=== PATIENT | female | born 1960 | race Caucasian/White ===

== ENCOUNTER 2018-12-04 06:39 | Inpatient (IN) | payer BC ==
[~2018-12-04 06:39] MED LIST: Acetaminophen 325 MG Tab PO SCH; Lidocaine 1%/Sod Bicarbonate in NS 8.4% 1 ML Syringe IDERM PRN; Pregabalin 25 MG Cap PO SCH; Sodium Chloride 0.9% 10 ML Syringe FLUSH PRN; oxyCODONE ER 10 MG TAB.ER PO SCH
--- NOTE | 2018-12-04 07:24 | PCM.PREANE ---
Preanesthetic Assessment - Anesthesia/Transfusion/Family Hx Anesthesia History: Prior Anesthesia Reaction Type of Anesthesia Reaction: Excessive Nausea/Vomiting, Other (see below) ( seizure with marcaine injection during foot surgery 2011) Family History of Anesthesia Reaction: No Transfusion History: No Prior Transfusion(s) - Review of Systems General: No Symptoms Pulmonary: No Symptoms Cardiovascular: No Symptoms, Other (HTN, on meds) Gastrointestinal: Other (GERD controlled with meds) Neurological: Other (s/p lumbar surgery, no residual effects) - Physical Assessment NPO Status Date: 12/03/18 NPO Status Time: 21:00 ASA Class: 2 Mental Status: Alert & Oriented x3 Airway Class: Mallampati = 2 Dentition: Reports: Normal Dentition Thyro-Mental Finger Breadths: 3 Mouth Opening Finger Breadths: 3 ROM/Head Extension: Full Lungs: Clear to Auscultation, Normal Respiratory Effort Cardiovascular: Regular Rate, Regular Rhythm - Lab Values: Laboratory Last Values MRSA (PCR) Negative 11/15/18 12:17 - Allergies Allergies/Adverse Reactions: Allergies Allergy/AdvReac Type Severity Reaction Status Date / Time hydrochlorothiazide Allergy SKIN Verified 12/03/18 17:09 SENSITIVITY iodine Allergy Sneezing Verified 12/03/18 17:09 tetracaine Allergy Swelling Verified 12/03/18 17:09 bupivacaine [From Marcaine] AdvReac Seizure Verified 12/04/18 07:12 cephalexin [From Keflex] AdvReac Nausea and Verified 12/04/18 07:12 Vomiting - Blood Blood Available: No Product(s) Available: None - Anesthesia Plan Pre-Op Medication Ordered: None - Acknowledgements Anesthesia Type Planned: General Anesthesia Pt an Appropriate Candidate for the Planned Anesthesia: Yes Alternatives and Risks of Anesthesia Discussed w Pt/Guardian: Yes Pt/Guardian Understands and Agrees with Anesthesia Plan: Yes PreAnesthesia Questionnaire HEENT History: Reports: None Cardiovascular History: Reports: Hypertension Respiratory History: Reports: None Gastrointestinal History: Reports: Hepatitis, Other (See Below) Other Gastrointestinal History: hepatitis A (in highschool) Genitourinary History: Reports: None [employer] History: Reports: , Other (See Below) Other OB/BYN History: bicornate uterus Musculoskeletal History: Reports: Osteoarthritis Other Musculoskeletal History: joint pain, back pain, knee pain Neurological History: Reports: Other (See Below) Other Neuro History: trigeminal neuralgia Psychiatric History: Reports: None Endocrine/Metabolic History: Reports: None Hematologic History: Reports: None Immunologic History: Reports: None Oncologic (Cancer) History: Reports: None Dermatologic History: Reports: Other (See Below) Other Dermatologic History: actinic keratosis - Past Surgical History HEENT Surgical History: Reports: Oral Surgery Cardiovascular Surgical History: Reports: None Respiratory Surgical History: Reports: None GI Surgical History: Reports: None Female Surgical History: Reports: Section Male Surgical History: Reports: None Endocrine Surgical History: Reports: None Neurological Surgical History: Reports: Other (See Below) Other Neurological Surgeries/Procedures: L4L5 fusion, microvascular decompression for trigeminal neuralgia- corey piece left in. Musculoskeletal Surgical History: Reports: Arthroscopic Knee Oncologic Surgical History: Reports: None Dermatological Surgical History: Reports: None - SUBSTANCE USE Smoking Status *Q: Never Smoker Second Hand Smoke Exposure: No Recreational Drug Use History: No - HOME MEDS Home Medications: Home Meds Ca Carbonate/Vitamin D3/Vit K [Calcium + D Soft Chewable Tab] 1 tab PO DAILY 08/16 [History] Cholecalciferol (Vitamin D3) [Vitamin D3] 5,000 unit PO DAILY 12/03/18 [History] Ibuprofen 200 - 600 mg PO Q6H PRN 12/03/18 [History] Losartan Potassium 50 mg PO DAILY 12/03/18 [History] Multivitamin [Daily Multiple Vitamin] 1 tab PO DAILY 12/03/18 [History] Ranitidine HCl [Zantac 75] 75 mg PO DAILY 12/03/18 [History] - CURRENT (IN HOUSE) MEDS Current Meds: Current Medications Acetaminophen (Tylenol) 975 mg PO ONETIME [facility] Stop: 12/04/18 12:00 Aspirin (Ecotrin) 325 mg PO BID [facility] Bisacodyl (Dulcolax) 5 mg PO DAILY PRN PRN Reason: Constipation Morphine Sulfate 8 mg/Epinephrine HCl 0.3 mg/Cefuroxime Sodium 750 mg/Ketorolac Tromethamine 30 mg/Sodium Chloride 27.9 ml 0 mg .XX ONETIME ONE Stop: 12/04/18 09:01 Cyclobenzaprine HCl (Flexeril) 10 mg PO TID PRN PRN Reason: Spasms Docusate Sodium (Colace) 100 mg PO BID [facility] Famotidine (Pepcid) 20 mg PO Q12H [facility] Lactated Ringer's (Ringers, Lactated) 1,000 mls @ 125 mls/hr IV ASDIRECTED [facility] Stop: 12/04/18 23:00 Cefazolin Sodium/Dextrose 2 gm (/ Premix) 50 mls @ 100 mls/hr IV Q8H [facility] Stop: 12/04/18 23:44 Ketorolac Tromethamine (Toradol) 15 mg IVPUSH Q6H PRN PRN Reason: Pain Lidocaine/Sodium Bicarbonate (Buffered Lidocaine 1% In Ns 8.4%) 0.25 ml IDERM ONETIME PRN PRN Reason: Prior to IV Start Stop: 12/04/18 18:00 Magnesium Hydroxide (Milk Of Magnesia) 30 ml PO BID PRN PRN Reason: Constipation Morphine Sulfate (Morphine) 2 mg IVPUSH Q2H PRN PRN Reason: Breakthrough Pain Naloxone HCl (Narcan) 0.1 mg IVPUSH Q5M PRN PRN Reason: Oversedation Ondansetron HCl (Zofran) 4 mg IVPUSH Q6H PRN PRN Reason: Nausea/Vomiting Oxycodone HCl (Oxycontin) 10 mg PO ONETIME [facility] Oxycodone/Acetaminophen (Percocet 325-5 Mg) 1 - 2 tab PO Q4H PRN PRN Reason: Pain Pregabalin (Lyrica) 50 mg PO ONETIME [facility] Stop: 12/04/18 12:00 Senna (Senna) 8.6 mg PO BID PRN PRN Reason: Constipation Sodium Chloride (Saline Flush) 10 ml FLUSH ASDIRECTED PRN PRN Reason: Keep Vein Open Stop: 12/04/18 18:00 Discontinued Medications Cefazolin Sodium (Ancef) Confirm Administered Dose 2 gm .ROUTE .STK-MED ONE Stop: 12/04/18 07:13 Tranexamic Acid (Cyklokapron) Confirm Administered Dose 1,000 mg .ROUTE .STK- MED ONE Stop: 12/04/18 07:13 Vancomycin HCl (Vancomycin) Confirm Administered Dose 1 gm .ROUTE .STK-MED ONE Stop: 12/04/18 07:13
[2018-12-04] MEDS: Lactated Ringers 1,000 ML IV SCH ×2 (07:25→10:51)
[2018-12-04] MEDS ORDERED: Scopolamine 1.5 MG Transdermal Patch TOP SCH (07:31)
[2018-12-04] MEDS ORDERED: EPINEPHrine 1 MG/1 ML Amp ONE (07:33)
[2018-12-04] MEDS ORDERED: Ropivacaine 0.5% 5 MG/ML 30 ML SDV ONE (07:33)
[2018-12-04] MEDS ORDERED: HYDROmorphone 0.5 MG/0.5 ML Syringe ONE ×3 (07:37→09:07)
[2018-12-04] MEDS ORDERED: Lactated Ringers 1,000 ML ONE (07:37)
[2018-12-04] MEDS ORDERED: Rocuronium 50 MG/5 ML Vial ONE (07:37)
[2018-12-04] MEDS ORDERED: Ondansetron 4 MG/2 ML SDV ONE (07:37)
[2018-12-04] MEDS ORDERED: Dexamethasone 4 MG/ML 5 ML MDV ONE (07:37)
[2018-12-04] MEDS ORDERED: Propofol 200 MG/20 ML SDV ONE ×2 (07:37→09:04)
[2018-12-04] MEDS ORDERED: fentaNYL 250 MCG/5 ML SDV ONE (07:38)
[2018-12-04] MEDS ORDERED: Ketamine 500 mg/10 ML MDV ONE (07:38)
[2018-12-04] MEDS ORDERED: Midazolam 1 MG/ML 2 ML SDV ONE (07:38)
[2018-12-04] MEDS ORDERED: ceFAZolin 1 GM Vial ONE (07:55)
[2018-12-04] MEDS ORDERED: Lidocaine 1% 4 ML ONE (08:18)
[2018-12-04] MEDS ORDERED: ePHEDrine/Normal Saline 25 MG/5 ML Syringe ONE (08:20)
[2018-12-04] MEDS: ceFAZolin 1 GM Vial ONE ×2 (09:03→09:15)
[2018-12-04] MEDS: Vancomycin 1 GM SDV ONE ×2 (09:04→09:19)
[2018-12-04] MEDS: Morphine 8 MG, EPINEPHrine 0.3 MG, Cefuroxime 750 MG, Ketorolac 30 MG, Sodium Chloride ... ONE ×10 (09:04→09:18)
[2018-12-04] MEDS ORDERED: Neostigmine Methylsulfate 1 MG/ML 5 ML Syringe ONE (09:25)
--- NOTE | 2018-12-04 10:27 | PCM.POSTAN ---
POST ANESTHESIA ASSESSMENT - MENTAL STATUS Mental Status: Alert, Oriented - VITAL SIGNS Vital Signs: Last Vital Signs Temp 36.2 C 12/04/18 06:50 Pulse 66 12/04/18 06:50 Resp 16 12/04/18 06:50 BP 126/75 12/04/18 06:50 Pulse Ox 96 12/04/18 06:50 - RESPIRATORY Respiratory Status: Respiratory Rate WNL, Airway Patent, O2 Saturation Stable, Supplemental Oxygen - CARDIOVASCULAR CV Status: Pulse Rate WNL, Blood Pressure Stable - GASTROINTESTINAL GI Status: No Symptoms - PAIN Pain Score: 9 - POST OP HYDRATION Hydration Status: Adequate & Stable
[2018-12-04] MEDS ORDERED: HYDROmorphone 0.5 MG/0.5 ML Syringe IVPUSH PRN (10:28)
[2018-12-04] MEDS ORDERED: fentaNYL 100 MCG/2 ML SDV IVPUSH PRN (10:28)
[2018-12-04] MEDS ORDERED: Ondansetron 4 MG/2 ML SDV IVPUSH PRN (10:28)
--- NOTE | 2018-12-04 10:44 | PCM.SN ---
- Free Text/Narrative Note: Left selective femoral nerve block at the adductor canal for post-procedure pain control under US guidance requested by Dr. Ly. Date:12/04/18 Time Out: 1027 Start: 1030 End: 1035 Chart reviewed. Consent signed. Questions answered. Appropriate monitors applied. Time out performed. Left mid-shaft femur identified with ultrasound, scanning medially of femur, the femoral artery in the adductor canal visualized , and the femoral nerve located laterally to the artery. The skin was prepped lateral to the ultrasound probe with chlorahexadine times two. The 22ga 4 insulated block needle was inserted under direct ultrasound guidance into the adductor canal. 25mL of 0.5% ropivacaine with 1:200,000 epinephrine was injected circumferentially around the nerve with intermittent negative aspiration noted. Patient tolerated the procedure well. Sterile technique noted along with sterile gloves, mask, and sterile probe cover. See picture on progress note and vital signs on nurses notes. Block completed in PACU. Jose Morris CRNA
[2018-12-04] MEDS ORDERED: Bisacodyl 5 MG Tab PO PRN (11:00)
[2018-12-04] MEDS ORDERED: Magnesium Hydroxide 400 MG/5 ML Susp 30 ML Cup PO PRN (11:00)
[2018-12-04] MEDS ORDERED: Sennosides 8.6 MG Tab PO PRN (11:00)
[2018-12-04] MEDS ORDERED: Morphine 2 MG/ML Syringe IVPUSH PRN (11:00)
[2018-12-04] MEDS ORDERED: Cyclobenzaprine 10 MG Tab PO PRN (11:00)
[2018-12-04] MEDS ORDERED: Naloxone 0.4 MG/ML SDV IVPUSH PRN (11:00)
[2018-12-04] MEDS: Ondansetron 4 MG/2 ML SDV IVPUSH PRN ×2 (12:03→18:14)
--- NOTE | 2018-12-04 12:22 | CR ---
Left knee: AP and lateral views of the left knee were obtained. Comparison: No previous knee exam. Knee prosthesis is seen. Components are aligned. Underlying bony structures are intact. Soft tissue air is noted from the surgical procedure. Impression: 1. Satisfactory postop radiographic appearance of recently placed left knee prosthesis. Diagnostic code #2
[2018-12-04] MEDS: Ketorolac 15 MG/ML SDV IVPUSH PRN (15:20)
[2018-12-04] MEDS: ceFAZolin 2 GM in Premix Bag 1 BAG IV SCH (17:13)
[2018-12-04] MEDS ORDERED: Famotidine 20 MG Tab PO SCH (21:00)
[2018-12-04] MEDS: Docusate Sodium 100 MG Cap PO SCH (21:04)
[2018-12-05] MEDS: ceFAZolin 2 GM in Premix Bag 1 BAG IV SCH ×2 (01:26→08:22)
[2018-12-05] MEDS: Ketorolac 15 MG/ML SDV IVPUSH PRN (01:27)
[2018-12-05] MEDS: Acetaminophen/oxyCODONE 325-5 MG Tab PO PRN ×3 (07:16→14:18)
--- NOTE | 2018-12-05 08:15 | PCM.SURGPN ---
- General Info Date of Service: 12/05/18 POD#: 1 Functional Status: Reports: Pain Controlled, Tolerating Diet, Ambulating, Urinating, Incentive Spirometry, Other (The pt states the fatigue she noted yesterday has improved.) - Patient Data Vitals - Most Recent: Last Vital Signs Temp 99.7 F 12/04/18 23:02 Pulse 66 12/05/18 03:42 Resp 14 12/05/18 03:42 BP 95/61 12/05/18 03:42 Pulse Ox 96 12/05/18 05:27 Weight - Most Recent: 163 lb 12.8 oz I&O - Last 24 Hours: Intake & Output 12/04/18 12/05/18 12/05/18 22:59 06:59 14:59 Intake Total 590 1050 Output Total 1400 Balance 590 -350 Lab Results Last 24 Hrs: Laboratory Results - last 24 hr 12/05/18 12/05/18 Range/Units 05:05 05:05 WBC 11.29 H (3.98-10.04) K/mm3 RBC 3.59 L (3.98-5.22) M/mm3 Hgb 12.2 (11.2-15.7) gm/dl Hct 35.1 (34.1-44.9) % MCV 97.8 H (79.4-94.8) fl MCH 34.0 H (25.6-32.2) pg MCHC 34.8 (32.2-35.5) g/dl RDW Std Deviation 43.6 (36.4-46.3) fL Plt Count 180 L (182-369) K/mm3 MPV 11.0 (9.4-12.3) fl Sodium 137 (136-145) mEq/L Potassium 4.0 (3.5-5.1) mEq/L Chloride 102 (98-107) mEq/L Carbon Dioxide 28 (21-32) mEq/L Anion Gap 11.0 (5-15) BUN 13 (7-18) mg/dL Creatinine 1.0 (0.55-1.02) mg/dL Est Cr Clr Drug Dosing 48.50 mL/min Estimated GFR (MDRD) 57 (>60) mL/min BUN/Creatinine Ratio 13.0 L (14-18) Glucose 119 H (74-106) mg/dL Calcium 8.8 (8.5-10.1) mg/dL Total Bilirubin 0.5 (0.2-1.0) mg/dL AST 20 (15-37) U/L ALT 35 (14-59) U/L Alkaline Phosphatase 52 (46-116) U/L Total Protein 6.2 L (6.4-8.2) g/dl Albumin 3.5 (3.4-5.0) g/dl Globulin 2.7 gm/dL Albumin/Globulin Ratio 1.3 (1-2) Med Orders - Current: Current Medications Aspirin (Ecotrin) 325 mg PO BID [facility] Bisacodyl (Dulcolax) 5 mg PO DAILY PRN PRN Reason: Constipation Cholecalciferol (Vitamin D3) 5,000 unit PO DAILY [facility] Cyclobenzaprine HCl (Flexeril) 10 mg PO TID PRN PRN Reason: Spasms Docusate Sodium (Colace) 100 mg PO BID [facility] Last Admin: 12/04/18 21:04 Dose: 100 mg Cefazolin Sodium/Dextrose 2 gm (/ Premix) 50 mls @ 100 mls/hr IV Q8H [facility] Stop: 12/05/18 09:29 Last Admin: 12/05/18 01:26 Dose: 100 mls/hr Ketorolac Tromethamine (Toradol) 15 mg IVPUSH Q6H PRN PRN Reason: Pain Last Admin: 12/05/18 01:27 Dose: 15 mg Losartan Potassium (Cozaar) 50 mg PO DAILY [facility] Magnesium Hydroxide (Milk Of Magnesia) 30 ml PO BID PRN PRN Reason: Constipation Miscellaneous Information (Remove Patch) 0 ea TRDERM ONETIME ONE Stop: 12/07/18 08:01 Morphine Sulfate (Morphine) 2 mg IVPUSH Q2H PRN PRN Reason: Breakthrough Pain Multivitamins (Thera) 1 each PO DAILY [facility] Naloxone HCl (Narcan) 0.1 mg IVPUSH Q5M PRN PRN Reason: Oversedation Ondansetron HCl (Zofran) 4 mg IVPUSH Q6H PRN PRN Reason: Nausea/Vomiting Last Admin: 12/04/18 18:14 Dose: 4 mg Oxycodone/Acetaminophen (Percocet 325-5 Mg) 1 - 2 tab PO Q4H PRN PRN Reason: Pain Last Admin: 12/05/18 07:16 Dose: 2 tab Senna (Senna) 8.6 mg PO BID PRN PRN Reason: Constipation Discontinued Medications Acetaminophen (Tylenol) 975 mg PO ONETIME [facility] Stop: 12/04/18 12:00 Last Admin: 12/04/18 07:24 Dose: 975 mg Cefazolin Sodium (Ancef) Confirm Administered Dose 2 gm .ROUTE .STK-MED ONE Stop: 12/04/18 07:13 Last Admin: 12/04/18 09:15 Dose: 2 gm Cefazolin Sodium (Ancef) Confirm Administered Dose 2 gm .ROUTE .STK-MED ONE Stop: 12/04/18 07:56 Morphine Sulfate 8 mg/Epinephrine HCl 0.3 mg/Cefuroxime Sodium 750 mg/Ketorolac Tromethamine 30 mg/Sodium Chloride 27.9 ml 0 mg .XX ONETIME ONE Stop: 12/04/18 09:01 Last Admin: 12/04/18 09:18 Dose: 788.3 mg Dexamethasone (Dexamethasone) Confirm Administered Dose 20 mg .ROUTE .STK-MED ONE Stop: 12/04/18 07:38 Ephedrine Sulfate (Ephedrine In Ns) Confirm Administered Dose 25 mg .ROUTE .STK- MED ONE Stop: 12/04/18 08:21 Epinephrine HCl (Adrenalin) Confirm Administered Dose 1 mg .ROUTE .STK-MED ONE Stop: 12/04/18 07:34 Famotidine (Pepcid) 20 mg PO Q12H [facility] Fentanyl (Sublimaze) Confirm Administered Dose 250 mcg .ROUTE .STK-MED ONE Stop: 12/04/18 07:39 Fentanyl (Sublimaze) 50 mcg IVPUSH Q5M PRN PRN Reason: pain Stop: 12/04/18 13:00 Glycopyrrolate () Confirm Administered Dose 1 mg .ROUTE .STK-MED ONE Stop: 12/04/18 09:26 Hydromorphone HCl (Dilaudid) Confirm Administered Dose 1 mg .ROUTE .STK-MED ONE Stop: 12/04/18 07:38 Hydromorphone HCl (Dilaudid) Confirm Administered Dose 0.5 mg .ROUTE .STK-MED ONE Stop: 12/04/18 08:54 Hydromorphone HCl (Dilaudid) Confirm Administered Dose 0.5 mg .ROUTE .STK-MED ONE Stop: 12/04/18 09:08 Hydromorphone HCl (Dilaudid) 0.5 mg IVPUSH Q15M PRN PRN Reason: Pain (severe 7-10) Stop: 12/04/18 13:00 Lactated Ringer's (Ringers, Lactated) 1,000 mls @ 125 mls/hr IV ASDIRECTED [facility] Stop: 12/04/18 23:00 Last Admin: 12/04/18 10:51 Dose: 125 mls/hr Lactated Ringer's (Ringers, Lactated) Confirm Administered Dose 1,000 mls @ as directed .ROUTE .STK-MED ONE Stop: 12/04/18 07:38 Lidocaine HCl (Xylocaine-Mpf 1%) Confirm Administered Dose 4 mls @ as directed .ROUTE .STK-MED ONE Stop: 12/04/18 08:19 Ketamine HCl (Ketalar) Confirm Administered Dose 500 mg .ROUTE .STK-MED ONE Stop: 12/04/18 07:39 Lidocaine/Sodium Bicarbonate (Buffered Lidocaine 1% In Ns 8.4%) 0.25 ml IDERM ONETIME PRN PRN Reason: Prior to IV Start Stop: 12/04/18 18:00 Last Admin: 12/04/18 07:25 Dose: 0.25 ml Midazolam HCl (Versed 1 Mg/Ml) Confirm Administered Dose 2 mg .ROUTE .STK-MED ONE Stop: 12/04/18 07:39 Neostigmine Methylsulfate (Neostigmine) Confirm Administered Dose 5 mg .ROUTE .STK-MED ONE Stop: 12/04/18 09:26 Non-Formulary Medication (Ranitidine Hcl [Zantac 75]) 75 mg PO DAILY [facility] Ondansetron HCl (Zofran) Confirm Administered Dose 4 mg .ROUTE .STK-MED ONE Stop: 12/04/18 07:38 Ondansetron HCl (Zofran) 4 mg IVPUSH ONETIME PRN PRN Reason: Nausea/Vomiting Stop: 12/04/18 13:00 Oxycodone HCl (Oxycontin) 10 mg PO ONETIME [facility] Stop: 12/04/18 12:00 Last Admin: 12/04/18 07:24 Dose: 10 mg Pregabalin (Lyrica) 50 mg PO ONETIME [facility] Stop: 12/04/18 12:00 Last Admin: 12/04/18 07:24 Dose: 50 mg Propofol (Diprivan 20 Ml) Confirm Administered Dose 200 mg .ROUTE .STK-MED ONE Stop: 12/04/18 07:38 Propofol (Diprivan 20 Ml) Confirm Administered Dose 200 mg .ROUTE .STK-MED ONE Stop: 12/04/18 09:05 Rocuronium [place] (Zemuron) Confirm Administered Dose 50 mg .ROUTE .STK-MED ONE Stop: 12/04/18 07:38 Ropivacaine (Naropin 0.5%) Confirm Administered Dose 30 ml .ROUTE .STK-MED ONE Stop: 12/04/18 07:34 Scopolamine (Transderm-Scop) 1.5 mg TOP ONETIME [facility] Stop: 12/04/18 12:00 Last Admin: 12/04/18 07:42 Dose: 1.5 mg Sodium Chloride (Saline Flush) 10 ml FLUSH ASDIRECTED PRN PRN Reason: Keep Vein Open Stop: 12/04/18 18:00 Tranexamic Acid (Cyklokapron) Confirm Administered Dose 1,000 mg .ROUTE .STK- MED ONE Stop: 12/04/18 07:13 Last Admin: 12/04/18 09:24 Dose: 1,000 mg Vancomycin HCl (Vancomycin) Confirm Administered Dose 1 gm .ROUTE .STK-MED ONE Stop: 12/04/18 07:13 Last Admin: 12/04/18 09:19 Dose: 1 gm - Exam Wound/Incisions: Dressing Dry and Intact General: Alert, Cooperative, No Acute Distress Lungs: Normal Respiratory Effort Extremities: Other (NVS intact for BLE. Luna's negative.) - Problem List Review Problem List Initiated/Reviewed/Updated: Yes - My Orders Last 24 Hours: Active Orders 24 hr Category Date Time Status Communication Order [RC] ROUTINE Care 12/04/18 10:27 Active Cooling Warming Measures [RC] ASDIRECTED Care 12/04/18 10:28 Active Notify Provider [RC] ASDIRECTED Care 12/04/18 10:28 Active RT BiPAP/CPAP [RC] ASDIRECTED Care 12/04/18 13:20 Active Regular Diet [DIET] Diet 12/04/18 Lunch Active Acetaminophen/oxyCODONE [Percocet 325-5 MG] Med 12/04/18 11:00 Active 1 - 2 tab PO Q4H PRN Aspirin [Ecotrin] Med 12/05/18 09:00 Active 325 mg PO BID Bisacodyl [Dulcolax] Med 12/04/18 11:00 Active 5 mg PO DAILY PRN Cholecalciferol (Vitamin D3) [Vitamin D3] Med 12/05/18 09:00 Active 5,000 unit PO DAILY Cyclobenzaprine [Flexeril] Med 12/04/18 11:00 Active 10 mg PO TID PRN Docusate Sodium [Colace] Med 12/04/18 21:00 Active 100 mg PO BID Ketorolac [Toradol] Med 12/04/18 11:00 Active 15 mg IVPUSH Q6H PRN Losartan [Cozaar] Med 12/05/18 09:00 Active 50 mg PO DAILY Magnesium Hydroxide [Milk of Magnesia] Med 12/04/18 11:00 Active 30 ml PO BID PRN Morphine Med 12/04/18 11:00 Active 2 mg IVPUSH Q2H PRN Multivitamins,Therapeutic [Thera] Med 12/05/18 09:00 Active 1 each PO DAILY Naloxone [Narcan] Med 12/04/18 11:00 Active 0.1 mg IVPUSH Q5M PRN Ondansetron [Zofran] Med 12/04/18 11:00 Active 4 mg IVPUSH Q6H PRN Remove Patch Med 12/07/18 08:00 Once 0 ea TRDERM ONETIME ONE Sennosides [Senna] Med 12/04/18 11:00 Active 8.6 mg PO BID PRN ceFAZolin [Ancef] 2 gm Med 12/04/18 17:00 Active Premix Bag 1 bag IV Q8H Medication Orders Aspirin (Ecotrin) 325 mg PO BID [facility] Bisacodyl (Dulcolax) 5 mg PO DAILY PRN PRN Reason: Constipation Cholecalciferol (Vitamin D3) 5,000 unit PO DAILY [facility] Cyclobenzaprine HCl (Flexeril) 10 mg PO TID PRN PRN Reason: Spasms Docusate Sodium (Colace) 100 mg PO BID [facility] Last Admin: 12/04/18 21:04 Dose: 100 mg Cefazolin Sodium/Dextrose 2 gm (/ Premix) 50 mls @ 100 mls/hr IV Q8H [facility] Stop: 12/05/18 09:29 Last Admin: 12/05/18 01:26 Dose: 100 mls/hr Infusion: 12/04/18 17:43 Dose: 100 mls/hr Admin: 12/04/18 17:13 Dose: 100 mls/hr Ketorolac Tromethamine (Toradol) 15 mg IVPUSH Q6H PRN PRN Reason: Pain Last Admin: 12/05/18 01:27 Dose: 15 mg Admin: 12/04/18 15:20 Dose: 15 mg Losartan Potassium (Cozaar) 50 mg PO DAILY [facility] Magnesium Hydroxide (Milk Of Magnesia) 30 ml PO BID PRN PRN Reason: Constipation Miscellaneous Information (Remove Patch) 0 ea TRDERM ONETIME ONE Stop: 12/07/18 08:01 Morphine Sulfate (Morphine) 2 mg IVPUSH Q2H PRN PRN Reason: Breakthrough Pain Multivitamins (Thera) 1 each PO DAILY [facility] Naloxone HCl (Narcan) 0.1 mg IVPUSH Q5M PRN PRN Reason: Oversedation Ondansetron HCl (Zofran) 4 mg IVPUSH Q6H PRN PRN Reason: Nausea/Vomiting Last Admin: 12/04/18 18:14 Dose: 4 mg Admin: 12/04/18 12:03 Dose: 4 mg Oxycodone/Acetaminophen (Percocet 325-5 Mg) 1 - 2 tab PO Q4H PRN PRN Reason: Pain Last Admin: 12/05/18 07:16 Dose: 2 tab Senna (Senna) 8.6 mg PO BID PRN PRN Reason: Constipation - Assessment Assessment (Free Text/Narrative):: POD#1 - left TKA - Plan Plan (Free Text/Narrative):: 1. Hgb 12.2. 2. Discharge to home today. 3. Outpatient therapy. 4. 325mg ASA PO BID, frequent mobility, TEDs. The pt's case was discussed with Dr. Ly.
[2018-12-05] MEDS: Docusate Sodium 100 MG Cap PO SCH (08:27)
[2018-12-05] MEDS ORDERED: Non-Formulary Medication 1 Each (Ranitidine Hcl [Zantac 75] 75 MG) PO SCH (09:00)
[2018-12-05] MEDS ORDERED: Aspirin 325 MG Tab.EC PO SCH (09:00)
[2018-12-05] MEDS ORDERED: Losartan 25 MG Tab PO SCH (09:00)
[2018-12-05] MEDS ORDERED: Cholecalciferol (Vitamin D3) 5,000 UNIT Tab PO SCH (09:00)
[2018-12-05] MEDS ORDERED: Multivitamins,Therapeutic Tab PO SCH (09:00)
--- NOTE | 2018-12-05 09:05 | PCM48HPAN ---
Post Anesthesia Note - EVALUATION WITHIN 48HRS OF ANESTHETIC Vital Signs in Normal Range: Yes Patient Participated in Evaluation: Yes Respiratory Function Stable: Yes Airway Patent: Yes Cardiovascular Function Stable: Yes Hydration Status Stable: Yes Pain Control Satisfactory: Yes Nausea and Vomiting Control Satisfactory: Yes Mental Status Recovered: Yes Vital Signs: Last Vital Signs Temp 37.6 C 12/04/18 23:02 Pulse 66 12/05/18 03:42 Resp 14 12/05/18 03:42 BP 107/61 12/05/18 08:25 Pulse Ox 96 12/05/18 05:27
[2018-12-05] MEDS: Ondansetron 4 MG/2 ML SDV IVPUSH PRN (09:11)
--- NOTE | 2018-12-05 09:18 | PCM.DCSUM1 ---
Discharge Summary - Hospital Course Brief History: Vannesa is a 58 yo female who underwent left TKA with Dr. Ly on 12-04-2018. The procedure was completed under spinal anesthesia with MAC. A post-operative adductor canal block was provided. The pt tolerated the procedure well and was admitted to the Medical-Surgical Unit. The pt's Hospital course was uneventful. The pt's Hgb on POD#1 was 12.2. On POD#1, 325mg ASA BID was initiated for VTE prophylaxis. SCDs and TEDs were also ordered. A Mepilex dressing was placed at the incision site at the time of surgery and remained clean and dry. The pt participated in P.T. and O.T. and progressed well. The pt was allowed to WBAT and used a FWW for mobility. On POD#1, the pt was deemed appropriate to discharge to home. - Discharge Data Discharge Date: 12/05/18 Discharge Disposition: Home, Self-Care 01 Condition: Good - Referral to Home Health Primary Care Physician: Lynette Franklin MD - Patient Summary/Data Consults: Consultations 12/04/18 07:07 OT Evaluation and Treatment [CONS] Routine PT Evaluation and Treatment [CONS] Routine - Patient Instructions Diet: Usual Diet as Tolerated Activity: Apply Ice, As Tolerated, Elevate Extremity, Full Weight Bearing Driving: Do Not Drive Showering/Bathing: May Shower Wound/Incision Care: Keep Operative Site/Wound Site Clean and Dry, Do NOT Change Dressing Notify Provider of: Fever, Increased Pain, Swelling and Redness, Drainage, Nausea and/or Vomiting Other/Special Instructions: Please get up and moving around EVERY HOUR while awake. This helps to prevent blood clots. Please use your walker and have help with mobility as needed. Take a short walk in your home every hour while awake. Please take 325mg Aspirin TWICE daily. The aspirin is being used for blood clot prevention and not for pain management so please do not miss a dose of the medication. You should continue with use of Zantac (and could increase use to twice daily). Or you could add a medication like Prilosec or Nexium to protect your stomach while you are using the aspirin. At home, please complete the exercises that you learned during the Hospital stay. Schedule for physical therapy. Use the pain medication as needed. The medication may cause drowsiness and constipation. Contact your primary care provider for instructions if you are constipated. You may use a stool softener like docusate sodium or Colace 100mg twice daily and/or a laxative like Miralax daily for constipation. Increase your water and fiber intake while you are using the pain medication. Discontinue use of the pain medication as soon as able. Please do not use other medications that may cause drowsiness (other pain medications, anxiety pills, cold medications, sleeping pills, etc) while using the prescription pain medication. Do not use alcohol while using the pain medication. You may use acetaminophen or Tylenol for pain management, however, please ensure you are not using over 4000 mg or 4 grams of acetaminophen per day from all sources. Your pain medication has 325mg of acetaminophen per tablet. At this time, please do not use ibuprofen (Motrin, Advil) or naproxen (Aleve) for pain management as you are using the aspirin. When the aspirin course is completed in 4 to 6 weeks, you could use ibuprofen or naproxen for pain management (if this is allowed by your primary care provider). Wear the NORMA hose during the day and you may remove these at night. Elevate the limb to decrease swelling. Place ice to the area often. Place a towel between your skin and the blue pad. Use the incentive spirometer often. Take deep breaths throughout the day. Please keep the dressing in place until follow-up. Notify the Clinic if the dressing becomes saturated. Increase your protein intake while you are healing. Call the Clinic with questions or concerns - [phone]. - Discharge Plan *PRESCRIPTION DRUG MONITORING PROGRAM REVIEWED*: No *COPY OF PRESCRIPTION DRUG MONITORING REPORT IN PATIENT YASIR: No Prescriptions/Med Rec: Acetaminophen/oxyCODONE [Percocet 325-5 MG] 1 - 2 tab PO Q4H PRN #60 tablet PRN Reason: Pain Aspirin [Ecotrin EC] 325 mg PO BID #84 tab.ec Cyclobenzaprine [Flexeril] 10 mg PO TID PRN #40 tablet PRN Reason: Spasms Naloxone HCl [Narcan] 4 mg NS ONETIME PRN #1 spray PRN Reason: Other Home Medications: Home Meds Ca Carbonate/Vitamin D3/Vit K [Calcium + D Soft Chewable Tab] 1 tab PO DAILY 08/16 [History] Cholecalciferol (Vitamin D3) [Vitamin D3] 5,000 unit PO DAILY 12/03/18 [History] Losartan Potassium 50 mg PO DAILY 12/03/18 [History] Multivitamin [Daily Multiple Vitamin] 1 tab PO DAILY 12/03/18 [History] Ranitidine HCl [Zantac 75] 75 mg PO DAILY 12/03/18 [History] Lactobacillus Rhamnosus R0011 [Probiotic Digestive Care] 1 cap PO DAILY [History] Acetaminophen/oxyCODONE [Percocet 325-5 MG] 1 - 2 tab PO Q4H PRN #60 tablet 10/16 [Rx] Aspirin [Ecotrin EC] 325 mg PO BID #84 tab.ec 12/05/18 [Rx] Bisacodyl [Dulcolax] 5 mg PO DAILY PRN tablet 12/05/18 [Rx] Cyclobenzaprine [Flexeril] 10 mg PO TID PRN #40 tablet 12/05/18 [Rx] Docusate Sodium [Colace] 100 mg PO BID cap 12/05/18 [Rx] Magnesium Hydroxide [Milk of Magnesia] 30 ml PO BID PRN cup 12/05/18 [Rx] Naloxone HCl [Narcan] 4 mg NS ONETIME PRN #1 spray 12/05/18 [Rx] Sennosides [Senna] 8.6 mg PO BID PRN tablet 12/05/18 [Rx] Referrals: Angella Copeland, DEVI [Physician Remote Sensing Analyst] - - Discharge Summary/Plan Comment DC Time >30 min.: No - Patient Data Vitals - Most Recent: Last Vital Signs Temp 99.7 F 12/04/18 23:02 Pulse 66 12/05/18 03:42 Resp 14 12/05/18 03:42 BP 107/61 12/05/18 08:25 Pulse Ox 96 12/05/18 05:27 Weight - Most Recent: 163 lb 12.8 oz I&O - Last 24 hours: Intake & Output 12/04/18 12/05/18 12/05/18 22:59 06:59 14:59 Intake Total 590 1050 Output Total 1400 Balance 590 -350 Lab Results - Last 24 hrs: Laboratory Results - last 24 hr 12/05/18 12/05/18 Range/Units 05:05 05:05 WBC 11.29 H (3.98-10.04) K/mm3 RBC 3.59 L (3.98-5.22) M/mm3 Hgb 12.2 (11.2-15.7) gm/dl Hct 35.1 (34.1-44.9) % MCV 97.8 H (79.4-94.8) fl MCH 34.0 H (25.6-32.2) pg MCHC 34.8 (32.2-35.5) g/dl RDW Std Deviation 43.6 (36.4-46.3) fL Plt Count 180 L (182-369) K/mm3 MPV 11.0 (9.4-12.3) fl Sodium 137 (136-145) mEq/L Potassium 4.0 (3.5-5.1) mEq/L Chloride 102 (98-107) mEq/L Carbon Dioxide 28 (21-32) mEq/L Anion Gap 11.0 (5-15) BUN 13 (7-18) mg/dL Creatinine 1.0 (0.55-1.02) mg/dL Est Cr Clr Drug Dosing 48.50 mL/min Estimated GFR (MDRD) 57 (>60) mL/min BUN/Creatinine Ratio 13.0 L (14-18) Glucose 119 H (74-106) mg/dL Calcium 8.8 (8.5-10.1) mg/dL Total Bilirubin 0.5 (0.2-1.0) mg/dL AST 20 (15-37) U/L ALT 35 (14-59) U/L Alkaline Phosphatase 52 (46-116) U/L Total Protein 6.2 L (6.4-8.2) g/dl Albumin 3.5 (3.4-5.0) g/dl Globulin 2.7 gm/dL Albumin/Globulin Ratio 1.3 (1-2) Med Orders - Current: Current Medications Aspirin (Ecotrin) 325 mg PO BID [facility] Last Admin: 12/05/18 08:28 Dose: 325 mg Bisacodyl (Dulcolax) 5 mg PO DAILY PRN PRN Reason: Constipation Cholecalciferol (Vitamin D3) 5,000 unit PO DAILY [facility] Last Admin: 12/05/18 08:25 Dose: 5,000 unit Cyclobenzaprine HCl (Flexeril) 10 mg PO TID PRN PRN Reason: Spasms Docusate Sodium (Colace) 100 mg PO BID [facility] Last Admin: 12/05/18 08:27 Dose: 100 mg Cefazolin Sodium/Dextrose 2 gm (/ Premix) 50 mls @ 100 mls/hr IV Q8H [facility] Stop: 12/05/18 09:29 Last Admin: 12/05/18 08:22 Dose: 100 mls/hr Ketorolac Tromethamine (Toradol) 15 mg IVPUSH Q6H PRN PRN Reason: Pain Last Admin: 12/05/18 01:27 Dose: 15 mg Losartan Potassium (Cozaar) 50 mg PO DAILY [facility] Last Admin: 12/05/18 08:25 Dose: 50 mg Magnesium Hydroxide (Milk Of Magnesia) 30 ml PO BID PRN PRN Reason: Constipation Miscellaneous Information (Remove Patch) 0 ea TRDERM ONETIME ONE Stop: 12/07/18 08:01 Morphine Sulfate (Morphine) 2 mg IVPUSH Q2H PRN PRN Reason: Breakthrough Pain Multivitamins (Thera) 1 each PO DAILY [facility] Last Admin: 12/05/18 08:25 Dose: 1 each Naloxone HCl (Narcan) 0.1 mg IVPUSH Q5M PRN PRN Reason: Oversedation Ondansetron HCl (Zofran) 4 mg IVPUSH Q6H PRN PRN Reason: Nausea/Vomiting Last Admin: 12/05/18 09:11 Dose: 4 mg Oxycodone/Acetaminophen (Percocet 325-5 Mg) 1 - 2 tab PO Q4H PRN PRN Reason: Pain Last Admin: 12/05/18 07:16 Dose: 2 tab Senna (Senna) 8.6 mg PO BID PRN PRN Reason: Constipation Discontinued Medications Acetaminophen (Tylenol) 975 mg PO ONETIME [facility] Stop: 12/04/18 12:00 Last Admin: 12/04/18 07:24 Dose: 975 mg Cefazolin Sodium (Ancef) Confirm Administered Dose 2 gm .ROUTE .STK-MED ONE Stop: 12/04/18 07:13 Last Admin: 12/04/18 09:15 Dose: 2 gm Cefazolin Sodium (Ancef) Confirm Administered Dose 2 gm .ROUTE .STK-MED ONE Stop: 12/04/18 07:56 Morphine Sulfate 8 mg/Epinephrine HCl 0.3 mg/Cefuroxime Sodium 750 mg/Ketorolac Tromethamine 30 mg/Sodium Chloride 27.9 ml 0 mg .XX ONETIME ONE Stop: 12/04/18 09:01 Last Admin: 12/04/18 09:18 Dose: 788.3 mg Dexamethasone (Dexamethasone) Confirm Administered Dose 20 mg .ROUTE .STK-MED ONE Stop: 12/04/18 07:38 Ephedrine Sulfate (Ephedrine In Ns) Confirm Administered Dose 25 mg .ROUTE .STK- MED ONE Stop: 12/04/18 08:21 Epinephrine HCl (Adrenalin) Confirm Administered Dose 1 mg .ROUTE .STK-MED ONE Stop: 12/04/18 07:34 Famotidine (Pepcid) 20 mg PO Q12H [facility] Fentanyl (Sublimaze) Confirm Administered Dose 250 mcg .ROUTE .STK-MED ONE Stop: 12/04/18 07:39 Fentanyl (Sublimaze) 50 mcg IVPUSH Q5M PRN PRN Reason: pain Stop: 12/04/18 13:00 Glycopyrrolate () Confirm Administered Dose 1 mg .ROUTE .STK-MED ONE Stop: 12/04/18 09:26 Hydromorphone HCl (Dilaudid) Confirm Administered Dose 1 mg .ROUTE .STK-MED ONE Stop: 12/04/18 07:38 Hydromorphone HCl (Dilaudid) Confirm Administered Dose 0.5 mg .ROUTE .STK-MED ONE Stop: 12/04/18 08:54 Hydromorphone HCl (Dilaudid) Confirm Administered Dose 0.5 mg .ROUTE .STK-MED ONE Stop: 12/04/18 09:08 Hydromorphone HCl (Dilaudid) 0.5 mg IVPUSH Q15M PRN PRN Reason: Pain (severe 7-10) Stop: 12/04/18 13:00 Lactated Ringer's (Ringers, Lactated) 1,000 mls @ 125 mls/hr IV ASDIRECTED [facility] Stop: 12/04/18 23:00 Last Admin: 12/04/18 10:51 Dose: 125 mls/hr Lactated Ringer's (Ringers, Lactated) Confirm Administered Dose 1,000 mls @ as directed .ROUTE .STK-MED ONE Stop: 12/04/18 07:38 Lidocaine HCl (Xylocaine-Mpf 1%) Confirm Administered Dose 4 mls @ as directed .ROUTE .STK-MED ONE Stop: 12/04/18 08:19 Ketamine HCl (Ketalar) Confirm Administered Dose 500 mg .ROUTE .STK-MED ONE Stop: 12/04/18 07:39 Lidocaine/Sodium Bicarbonate (Buffered Lidocaine 1% In Ns 8.4%) 0.25 ml IDERM ONETIME PRN PRN Reason: Prior to IV Start Stop: 12/04/18 18:00 Last Admin: 12/04/18 07:25 Dose: 0.25 ml Midazolam HCl (Versed 1 Mg/Ml) Confirm Administered Dose 2 mg .ROUTE .STK-MED ONE Stop: 12/04/18 07:39 Neostigmine Methylsulfate (Neostigmine) Confirm Administered Dose 5 mg .ROUTE .STK-MED ONE Stop: 12/04/18 09:26 Non-Formulary Medication (Ranitidine Hcl [Zantac 75]) 75 mg PO DAILY [facility] Ondansetron HCl (Zofran) Confirm Administered Dose 4 mg .ROUTE .STK-MED ONE Stop: 12/04/18 07:38 Ondansetron HCl (Zofran) 4 mg IVPUSH ONETIME PRN PRN Reason: Nausea/Vomiting Stop: 12/04/18 13:00 Oxycodone HCl (Oxycontin) 10 mg PO ONETIME [facility] Stop: 12/04/18 12:00 Last Admin: 12/04/18 07:24 Dose: 10 mg Pregabalin (Lyrica) 50 mg PO ONETIME [facility] Stop: 12/04/18 12:00 Last Admin: 12/04/18 07:24 Dose: 50 mg Propofol (Diprivan 20 Ml) Confirm Administered Dose 200 mg .ROUTE .STK-MED ONE Stop: 12/04/18 07:38 Propofol (Diprivan 20 Ml) Confirm Administered Dose 200 mg .ROUTE .STK-MED ONE Stop: 12/04/18 09:05 Rocuronium [place] (Zemuron) Confirm Administered Dose 50 mg .ROUTE .STK-MED ONE Stop: 12/04/18 07:38 Ropivacaine (Naropin 0.5%) Confirm Administered Dose 30 ml .ROUTE .STK-MED ONE Stop: 12/04/18 07:34 Scopolamine (Transderm-Scop) 1.5 mg TOP ONETIME [facility] Stop: 12/04/18 12:00 Last Admin: 12/04/18 07:42 Dose: 1.5 mg Sodium Chloride (Saline Flush) 10 ml FLUSH ASDIRECTED PRN PRN Reason: Keep Vein Open Stop: 12/04/18 18:00 Tranexamic Acid (Cyklokapron) Confirm Administered Dose 1,000 mg .ROUTE .STK- MED ONE Stop: 12/04/18 07:13 Last Admin: 12/04/18 09:24 Dose: 1,000 mg Vancomycin HCl (Vancomycin) Confirm Administered Dose 1 gm .ROUTE .STK-MED ONE Stop: 12/04/18 07:13 Last Admin: 12/04/18 09:19 Dose: 1 gm
--- NOTE | 2018-12-08 11:14 | PCM.OPNOTE ---
- General Post-Op/Procedure Note Date of Surgery/Procedure: 12/04/18 Operative Procedure(s): left total knee arthroplasty Pre Op Diagnosis: left knee osteoarthrosis Post-Op Diagnosis: Same Anesthesia Technique: Local, MAC, Spinal Primary Surgeon: Dustin Ly Anesthesia Provider: Eli Monzon Drier Take Off Tender: Angella Copeland Drier Take Off Tender: Jossie Palmer EBRobert in mLs: 150 Complications: None Condition: Good Free Text/Narrative:: size 4/4 9mm 29x9
--- NOTE | 2018-12-08 11:39 | OR ---
DATE OF OPERATION: 12/04/2018 SURGEON: Dustin Ly MD OPERATION PERFORMED: Left total knee arthroplasty. PREOPERATIVE DIAGNOSIS: Left knee osteoarthrosis. POSTOPERATIVE DIAGNOSIS: Left knee osteoarthrosis. ANESTHESIA: Local MAC with spinal. ANESTHESIA PROVIDER: Eli Monzon CRNA. ASSISTANTS: Angella Copeland PA-C; and Jossie Palmer LPN. ESTIMATED BLOOD LOSS: 150 mL. COMPLICATIONS: None. CONDITION: Stable. IMPLANTS: 1. [place] size 4 press-fit CR femur. 2. [place] size 4 press-fit [place] tibial base plate. 3. [place] size 4, 9 mm CS polyethylene insert. 4. [place] size 29 x 9 mm press fit asymmetric patella. DESCRIPTION OF PROCEDURE: The patient was identified in the preop holding area. Proper site was marked and identified by the surgeon. The patient was taken back to the operating theater. After adequate anesthesia, the patient's left lower extremity had a nonsterile tourniquet applied and it was sterilely prepped and draped in the usual sterile fashion. OR time-out was performed. The patient received 2 g IV Ancef. At this time, the left lower extremity was exsanguinated. Tourniquet was insufflated to 300 mmHg. Standard medial parapatellar incision was made. Medial parapatellar arthrotomy was created. Deep fibers of the MCL were raised and anterior fat pad was resected. At this time, attention was turned to the patella. Patella measured a 21, it was resected to a 13 for a 29 x 9 mm patella. Drill holes were then drilled and found to be in adequate position. The drill was then drilled in the distal femur and the intramedullary distal femoral cutting guide was then placed. 8 mm was resected off the distal femur and was found to be an adequate resection. Sizing guide was placed. It was found to be a size 4 press-fit CR femur that was shown on the implant record at the beginning of this dictation. The drill holes were drilled for the epicondylar axis using [place] line and epicondyles as reference. At this time, the 4-in-1 cutting block was placed. An anterior posterior and anterior and posterior chamfer cuts were then completed. Attention was turned to the tibia. The posterior medial lateral retractors were placed. The extramedullary tibial guide was placed. It was placed in the old footprint of the ACL. It was aligned with the center of the ankle and 0 degrees of slope, 9 mm was then resected off the unaffected side. There was found to be an acceptable reduction. At this time, posterior osteophytes were removed along with medial and lateral meniscus. A trial implant was placed with a correct sized tibia that was mentioned at the beginning of the dictation. A [place] size 4, 9 mm CS polyethylene insert was then placed. The patient's knee was brought through range of motion. The patella was tracking centrally and was stable to varus and valgus stress. Alignment was found to be roughly at 0 degrees. The tibia was stamped and drilled in proper rotation. The universal tibial base plate was impacted in place. Next, the [place] size 4 press-fit CR femur impacted into place and the [place] size 4, 9 mm CS polyethylene insert was placed. The patient's knee was brought into full extension. The patella was then press-fit in place at this time. Tourniquet was deflated. One liter dilute Betadine solution was irrigated through the knee along with 3 L of pulse lavage irrigation with Ancef. Periarticular injection was then completed. The patient's knee was brought through a range of motion. Knee was found to be stable to varus valgus stress, the patella was tracking centrally with full range of motion. At this time, a #2 barbed suture was used for closure of the medial parapatellar arthrotomy. Topical tranexamic acid was placed. 2-0 Vicryl was used subcutaneously, Prineo was used for the skin. The patient tolerated the procedure well and was sent to the PACU in stable condition. ALESSANDRA /[id number] JACKSON
== END 2018-12-05 14:42 | disposition home or self-care (01) | DRG 302 ==
LOC: JD.MS 06:39 → EDSTATUS 11:00
PROVIDERS: ADMIT Orthopaedic Surgery; ATTEND Orthopaedic Surgery
PROC: 0SRD0JA Replacement of Left Knee Joint with Synthetic Substitute, Uncemented, Open Approach (ICD-10-PCS; principal; 2018-12-04)
DX: M16.12 Unilateral primary osteoarthritis, left hip (principal); I10 Essential (primary) hypertension; Z88.1 Allergy status to other antibiotic agents; Z88.8 Allergy status to other drugs, medicaments and biological substances; Z79.82 Long term (current) use of aspirin; Z79.899 Other long term (current) drug therapy
CPT/HCPCS: 01402; 36415; 64450; 73560-26-LT; 73560-LT; 80053; 85027; 87641; 94760; 94761; 97110-GP; 97116-GP; 97162-GP; 97165-GO; 97535-GO; A9270-GY; C1776; J0171; J0690; J0697; J1100; J1170; J1885; J2001; J2250; J2270; J2405; J2704; J2710; J2795; J3010; J3370; J7050; J7120

== ENCOUNTER 2022-10-25 07:31 | Day surgery (SDC) | payer BC ==
[~2022-10-25 07:31] MED LIST changes: -Acetaminophen 325 MG Tab PO SCH; +Dexamethasone 4 MG/ML 5 ML MDV ONE; +Famotidine 20 MG/2 ML SDV IVPUSH SCH; +Ketamine 500 mg/10 ML MDV ONE; +Ketorolac 30 MG/ML SDV ONE; +Lactated Ringers 1,000 ML IV SCH; +Lactated Ringers 1,000 ML ONE; -Lidocaine 1%/Sod Bicarbonate in NS 8.4% 1 ML Syringe IDERM PRN; +Metoclopramide 10 MG/2 ML SDV IV SCH; +Midazolam 1 MG/ML 2 ML SDV ONE; +Morphine 8 MG, EPINEPHrine 0.3 MG, Cefuroxime 750 MG, Ketorolac 30 MG, Sodium Chloride ... PRN; +Ondansetron 4 MG/2 ML SDV ONE; -Pregabalin 25 MG Cap PO SCH; +Propofol 200 MG/20 ML SDV ONE; +Rocuronium 50 MG/5 ML Vial ONE; +Scopolamine 1.5 MG Transdermal Patch TRDERM SCH; +Sodium Chloride 0.9% 10 ML Syringe FLUSH SCH; +fentaNYL 250 MCG/5 ML SDV ONE; -oxyCODONE ER 10 MG TAB.ER PO SCH
[2022-10-25] MEDS ORDERED: Vancomycin 1 GM SDV ONE (07:40)
[2022-10-25] MEDS ORDERED: Tranexamic Acid 1,000 MG/10 ML Vial ONE (07:40)
[2022-10-25] MEDS ORDERED: ceFAZolin 2 GM Vial ONE (08:50)
[2022-10-25] MEDS ORDERED: ePHEDrine 50 MG/ML SDV ONE (09:31)
[2022-10-25] MEDS ORDERED: Albuterol 0.083% 2.5 MG/3 ML Neb Soln NEB PRN (09:33)
[2022-10-25] MEDS ORDERED: diphenhydrAMINE 50 MG/ML SDV IVPUSH PRN (09:33)
[2022-10-25] MEDS ORDERED: ePHEDrine 50 MG/ML SDV IVPUSH PRN (09:33)
[2022-10-25] MEDS ORDERED: fentaNYL 100 MCG/2 ML SDV IVPUSH PRN (09:33)
[2022-10-25] MEDS ORDERED: HYDROmorphone 0.5 MG/0.5 ML Syringe IVPUSH PRN (09:33)
[2022-10-25] MEDS ORDERED: Ondansetron 4 MG/2 ML SDV IVPUSH PRN (09:33)
[2022-10-25] MEDS ORDERED: HYDROmorphone 0.5 MG/0.5 ML Syringe ONE (09:47)
[2022-10-25] MEDS ORDERED: Lactated Ringers 1,000 ML ONE (09:50)
[2022-10-25] MEDS ORDERED: Neostigmine Methylsulfate 10 MG/10 ML MDV ONE (10:11)
[2022-10-25] MEDS ORDERED: Acetaminophen/HYDROcodone 325-5 MG Tab PO SCH (11:24)
== END 2022-10-25 14:11 | disposition home or self-care (01) ==
LOC: JD.SDS 07:31
PROVIDERS: ATTEND Orthopaedic Surgery
DX: M16.11 Unilateral primary osteoarthritis, right hip (principal); G89.29 Other chronic pain; M81.0 Age-related osteoporosis without current pathological fracture; I10 Essential (primary) hypertension; F41.9 Anxiety disorder, unspecified; F32.A Depression, unspecified; E78.00 Pure hypercholesterolemia, unspecified; K21.9 Gastro-esophageal reflux disease without esophagitis; Z79.82 Long term (current) use of aspirin; Z79.899 Other long term (current) drug therapy; Z88.1 Allergy status to other antibiotic agents; Z88.8 Allergy status to other drugs, medicaments and biological substances
CPT/HCPCS: 0055T; 27130; 36415; 73501; 86850; 86900; 86901; 97116; 97161; A9270; C1713; C1776; J0171; J0690; J0697; J1100; J1170; J1885; J2250; J2270; J2405; J2704; J2710; J2765; J3010; J3370; J3490; J7030; J7120; 01214